=== PATIENT | female | born 1960 | race African-American/Black ===

== ENCOUNTER 2017-12-21 04:14 | Emergency (ER) | payer MEDICAID ==
[~2017-12-21] VITALS: Ht 177.8 cm; Wt 54.0 kg
[2017-12-21] MEDS ORDERED: HYDROCODONE/ACETAMINOPHEN 10/325MG TABLET PO ONE (04:30)
[2017-12-21] MEDS ORDERED: KETOROLAC 60MG/2ML VIAL IM ONE (06:45)
[2017-12-21 07:38] VITALS: BP 139/90
== END 2017-12-21 08:13 | disposition home or self-care (01) ==
LOC: ER 04:14
DX: M54.30 Sciatica, unspecified side (principal); I10 Essential (primary) hypertension
CPT/HCPCS: 99283; J1885

== ENCOUNTER 2018-04-15 13:12 | Emergency (ER) | payer MEDICAID ==
[~2018-04-15] VITALS: Ht 167.6 cm; Wt 45.0 kg
[2018-04-15] MEDS ORDERED: ATEN-42 PO (13:16)
[2018-04-15] MEDS ORDERED: AMLO2.5T45 PO (13:16)
[2018-04-15] MEDS: ACETAMINOPHEN 325MG TABLET PO ONE ×2 (16:59→17:01)
[2018-04-15 17:00] LABS: BASOPHILS % 0.5 % (0.0-2.0); EOSINOPHILS % 0.9 % (0.0-5.0); HEMATOCRIT. 40.1 % (36.0-48.0); HEMOGLOBIN. 13.2 g/dL (12.0-16.0); LYMPHOCYTES % 16.7 % (20.0-50.0); MEAN CORPUSCULAR HEMOGLOBIN 26.7 pg (28.0-32.0); MEAN CORPUSCULAR VOLUME 81.3 fL (81.0-99.0); MEAN PLATELET VOLUME 7.8 fl (7.4-10.4); MONOCYTES % 7.8 % (2.0-8.0); NEUTROPHILS % 74.1 % (40.0-76.0); PLATELET 320 x1000/uL (130-400); RED BLOOD CELL COUNT 4.93 mill/uL (4.2-5.4); RED CELL DISTRIBUTION WIDTH 13.8 % (11.6-14.6)
[2018-04-15 17:02] LABS: CHLORIDE 110 mEq/L (98-107)
[2018-04-15 17:03] LABS: PROTHROMBIN TIME 10.2 sec (9.4-11.6)
[2018-04-15] MEDS ORDERED: HYDROCODONE/ACETAMINOPHEN 5/325MG TABLET PO ONE (18:45)
[2018-04-15 19:35] LABS: CLARITY URINE CLEAR (CLEAR); COLOR URINE YELLOW (YELLOW); KETONES URINE NEGATIVE (NEGATIVE); LEUKOCYTE ESTERASE URINE NEGATIVE (NEGATIVE); NITRITE URINE NEGATIVE (NEGATIVE); OCCULT BLOOD URINE NEGATIVE (NEGATIVE); PH URINE 5.5 (4.5-8.0); PROTEIN URINE 2+ (NEGATIVE); UROBILINOGEN URINE 0.2 E.U./dL (0.2-1.0)
[2018-04-15 20:13] LABS: *AMPHETAMINES SCREEN URINE NEGATIVE (NEGATIVE); *BARBITURATES SCREEN URINE NEGATIVE (NEGATIVE); *BENZODIAZEPINES SCREEN URINE NEGATIVE (NEGATIVE)
[2018-04-15 20:14] LABS: *COCAINE SCREEN URINE PRESUMTIVE POSITIVE (NEGATIVE); CANNABINOID URINE SCREEN NEGATIVE (NEGATIVE); METHADONE URINE SCREEN NEGATIVE (NEGATIVE); OPIATES URINE SCREEN PRESUMTIVE POSITIVE (NEGATIVE); PHENCYCLIDINE URINE SCREEN NEGATIVE (NEGATIVE)
[2018-04-15 21:02] VITALS: BP 168/95
== END 2018-04-15 23:16 | disposition left against medical advice (07) ==
LOC: ER 13:12
DX: S06.0X9A Concussion with loss of consciousness of unspecified duration, initial encounter (principal); S01.311A Laceration without foreign body of right ear, initial encounter; E86.0 Dehydration; I67.4 Hypertensive encephalopathy; I11.0 Hypertensive heart disease with heart failure; I50.9 Heart failure, unspecified; R60.0 Localized edema; R61 Generalized hyperhidrosis; E83.51 Hypocalcemia; N17.0 Acute kidney failure with tubular necrosis; F14.10 Cocaine abuse, uncomplicated; K21.9 Gastro-esophageal reflux disease without esophagitis; M54.30 Sciatica, unspecified side; J44.1 Chronic obstructive pulmonary disease with (acute) exacerbation; E11.65 Type 2 diabetes mellitus with hyperglycemia; F11.10 Opioid abuse, uncomplicated; J34.2 Deviated nasal septum; F12.10 Cannabis abuse, uncomplicated; M25.421 Effusion, right elbow; F32.9 Major depressive disorder, single episode, unspecified; R53.81 Other malaise; R00.1 Bradycardia, unspecified; R79.89 Other specified abnormal findings of blood chemistry; Z79.84 Long term (current) use of oral hypoglycemic drugs; Z86.73 Personal history of transient ischemic attack (TIA), and cerebral infarction without residual deficits; Z91.041 Radiographic dye allergy status; Z87.81 Personal history of (healed) traumatic fracture; Y00.XXXA Assault by blunt object, initial encounter; Y93.89 Activity, other specified; Y92.018 Other place in single-family (private) house as the place of occurrence of the external cause
CPT/HCPCS: 36415; 70450; 70486; 71045; 72125; 73070; 73090; 80053; 80305; 81003; 83036; 83880; 84484; 85025; 85610; 93005; 99285; Z7610